=== PATIENT | female | born 1945 | race Caucasian/White ===

== ENCOUNTER 2021-09-17 13:14 | Emergency (ER) | payer OTHER ==
[2021-09-17] MEDS ORDERED: Caclcium Chloride 10% INJ SYR IV ONE (13:15)
[2021-09-17] MEDS ORDERED: EPINEPHrine 1 MG/10 ML SYR IV ONE (13:15)
--- OUTSIDE RECORDS SUMMARY | 2021-09-17 13:17 | XMS REPORT | Continuity of Care Document ---
:1945 Author Organization [facility] t Address [address] [place] [id number] Care Team Providers Name Role Phone MYRTLE Primary Care Physician Unavailable Frantz PETERSON Attending Clinician Unavailable Jaspal MA Attending Clinician Unavailable Missy BURNETTE Attending Clinician Unavailable Jaspal MA Admitting Clinician Unavailable Missy BURNETTE Admitting Clinician Unavailable Payers Payer Name Policy Type Policy Number Effective Date Expiration Date S anne [employer] MEDICARE ADV [id number] 2019 00:00:00 Problems This patient has no known problems. Allergies, Adverse Reactions, Alerts Allergy Allergy Status Severity Reaction(s) Onset Inactive Treating Comm ents Source Name Type Date Date Clinician STATINS- Drug Active Other-Cmnt Univ ers [facility]G-COA Class 3-16 ity of REDUCTAS 00:00: [address] RS FOOD [facility]ergy Active [facility] STATINS- Allergy Active [facility] HMG-COA [facility] [place] INHIBITO RS NO KNOWN Drug Active Univers ALLERGIE Class ity of [facility] Medications This patient has no known medications. Procedures This patient has no known procedures. Encounters Start End Encounter Admission Attending Care Care Encounter Source Date/Time Date/Time Type Type Clinicians Facility Department ID 2020-11-19 2020-11-19 Outpatient Ricci PETERSON [facility] [id number] Univers 13:15:00 13:15:00 BARBARA [id number] [facility] 2020-11-19 2020-11-19 Outpatient Ricci PETERSON [facility] [id number] Univers 13:15:00 13:15:00 BARBARA [facility] 2020-01-23 2020-01-23 Outpatient Ricci PETERSON [facility] [id number] Univers 10:40:07 23:59:00 BARBARA seo [facility] 2019-12-11 2019-12-11 Emergency X [facility] ERT [id number] Univers 16:11:12 19:27:00 MELANY taylor [facility] Results Test Description Test Time Test Comments Results Result Comments Source TISSUE EXAM 2019-06-18 Surgical Pathology 19:33:00 Report Case: [id number] Authorizing Provider: Carroll Burnette MD Collected: 06/16/2019 0945 Ordering Location: [facility] Endoscopy Received: 06/16/2019 1215 Services Pathologist: Medhat Restrepo MD Specimen: Distal Esophagus, bx to rule out Dysplasia A. 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 The specimen is submitted in toto following filtration in cassette A1. SS/plPerformed. POCT-GLUCOSE METER 2019-06-16 08:04:00 Test Item Value Reference Range Interpretation Comme nts POC-GLUCOSE METER (NADINE) (test 96 mg/dL 70-110 TESTED AT [facility] [address] [facility] code = 1538) [facility] 7703 0
[2021-09-17] MEDS ORDERED: RSI MEDICATION KIT IV ONE (13:19)
[2021-09-17] MEDS ORDERED: FENTANYL CITR 100 MCG/2 ML ONE (13:20)
[2021-09-17] MEDS ORDERED: VERAPAMIL HCL 10 MG/4 ML VIAL IV ONE (13:20)
[2021-09-17] MEDS ORDERED: MIDAZOLAM HCL 2 MG/2 ML INJ ONE (13:22)
[2021-09-17] MEDS ORDERED: HEPARIN/D5W 25,000 UNIT/500 ML BAG IV ONE (13:22)
[2021-09-17] MEDS ORDERED: HEPARIN 5000 UNIT/ML 1 ML VIAL ONE (13:22)
[2021-09-17] MEDS ORDERED: TENECTEPLASE 50 MG/10 ML VIAL IV ONE (13:24)
--- NOTE | 2021-09-17 14:13 | EDPHYS ---
Physician Documentation [facility] Name: Tika Muniz Age: 76 yrs Sex: Female : 1945 Arrival Date: 09/17/2021 Time: 13:15 Bed 4 Private MD: ED Physician Tanvir Shelton HPI: 09/17 16:03 This 76 yrs old Female presents to ER via Other with complaints of CPR. jr8 16:03 Preceding the arrest, the patient was dyspneic. The arrest occurred in a parking lot. jr8 Pre-hospital course: The arrest was witnessed by family. Bystanders at the scene did not perform CPR. The patient has not experienced similar symptoms in the past. The patient has not recently seen a physician. A 76-year-old female patient that presented to the emergency room in her family's car. Family member stated that she had called them because she was not feeling well and started to have shortness of breath. Family stated as soon as they had arrived to the front of the emergency room patient stopped talking. She rushed inside to get nursing staff at that point. It was identified that patient was having agonal respirations without a pulse. Immediate CPR was started and patient was taken out of the car via stretcher into the emergency room.. ROS: 16:03 Unable to obtain ROS due to patient distress. jr8 Exam: 16:03 Head/Face: Normocephalic, atraumatic. jr8 16:03 Eyes: Pupils: equal, right pupil is approximately 3 mm(s), left pupil is approximately 3 mm(s). 16:03 Neck: External neck: no acute changes, Trachea: is midline with no obvious abnormalities. 16:03 Cardiovascular: Rate: tachycardic, Rhythm: pea, Pulses: not palpable. 16:03 Respiratory: agonal. 16:03 Abdomen/GI: Inspection: abdomen appears normal, Palpation: soft. 16:03 Skin: Appearance: Color: pale, Temperature: normal temperature. Vital Signs: 13:17 BP 170 / 136; mckeon 13:23 BP 115 / 29; mckeon [place] Coma Score: 13:23 Eye Response: none(1). Verbal Response: none(1). Motor Response: none(1). Modifying mckeon Factors: Intubated. Total: 3. 16:03 Eye Response: none(1). Verbal Response: none(1). Motor Response: none(1). Total: 3. jr8 Procedures: 16:03 Central Line: the site was prepped with Betadine, in sterile fashion, a triple lumen jr8 catheter was inserted, in the right femoral vein, in 1 attempts. placement was verified, by blood return, the site was dressed with 4X4s, Tegaderm, foam tape, using sterile technique. 16:03 Intubation: Intubated orally using # 4 Manjinder blade with 7.5 mm ETT. was successful jr8 on first attempt. Ventilated with Ambu bag. Tube secured with ETT oro at center of mouth measured 21 cm at lip. Placement verified by CO2 detector with (+) color change, auscultating bilateral breath sounds. MDM: 13:39 Patient medically screened. jr8 14:08 Data reviewed: vital signs, nurses notes, EKG. jr8 16:03 ED course: Despite continued ACLS protocol including TNKase and heparin after noting jr8 that patient had a large anterior wall STEMI. We were unable to gain pulse after the initial ROSC. Family was notified at that time.. 09/17 13:22 Order name: glucometer results - FOR PT WITH NO ID [id number] Administered Medications: 13:18 Drug: fentaNYL (PF) 50 mcg Route: IVP; Site: right femoral; mckeon 13:23 Drug: EPINEPHrine 0.1mg/mL 1:10,000 1 mg Route: IVP; Site: right femoral; mckeon 13:25 Drug: Calcium Chloride 10% 10 ml Route: IVP; Site: right femoral; mckeon 13:25 Drug: HEParin 5000 units Route: IV; Rate: bolus; Site: right femoral; mckeon 13:27 Drug: Sodium Bicarbonate 1 amp Route: IVP; Site: right femoral; mckeon 13:29 Drug: EPINEPHrine 0.1mg/mL 1:10,000 1 mg Route: IVP; Site: right femoral; mckeon 14:23 Drug: Tenecteplase 50 mg Route: IV; Rate: bolus; Site: right femoral; mckeon Point of Care Testing: Blood Glucose: 13: Blood Glucose: 230 mg/dL; mckeon Ranges: Critical Glucose Levels:Adult <50 mg/dl or >400 mg/dl <40 mg/dl or >180 mg/dl Disposition: 14:08 . jr8 18:32 Co-signature as Attending Physician, Tanvir Shelton MD I agree with the assessment and kdr plan of care. Disposition Summary: 09/17/21 14:12 Patient Location: Home [facility] Pronouncing Physician: Hipolito Sheriff jrPanda Time of : 13:35 09/17/2021 jr8 Diagnosis - ST elevation (STEMI) myocardial infarction involving left anterior descending jr8 coronary artery - Cardiac arrest due to underlying cardiac condition jr8 Signatures: Dispatcher [employer] EDMS Tanvir Shelton MD MD [facility] Hipolito Sheriff PA PA jr8 Au-StagerShelia
--- NOTE | 2021-09-17 14:13 | ER ---
Nurse's Notes [facility] Name: Tika Muniz Age: 76 yrs Sex: Female : 1945 Arrival Date: 09/17/2021 Time: 13:15 Bed 4 Private MD: Diagnosis: ST elevation (STEMI) myocardial infarction involving left anterior descending coronary artery;Cardiac arrest due to underlying cardiac condition Presentation: 09/17 14:17 Chief complaint: Patient states: cardiac arrest. Care prior to arrival: CPR. mckeon Compressions began at 13:11. 14:17 Method Of Arrival: Other mckeon 14:17 Acuity: ITALO 1 mckeon Triage Assessment: 14:30 General: Appears code blue. Behavior is unresponsive. Pain: Denies pain. Unable to use mckeon pain scale. Patient is unresponsive. Screenin:23 Abuse screen: Denies threats or abuse. Denies injuries from another. Nutritional mckeon screening: No deficits noted. Tuberculosis screening: No symptoms or risk factors identified. Assessment: 13:11 CPR assessment: unresponsive, no respiratory effort, pale. mckeon 13:11 Reassessment: pt was presented cardiac arrest [employer]. pt neighbor drive pt to hospital. mckeon CPR initiated by nurse Ashanti and Hipolito CARDONA in the parking lot ED entrance. 1314 pt was presented with agonal respiration and no pulse-PEA. . 13:17 Cardiac rhythm is pt with palpable pulses, sinus tach on monitor. iw 13:21 CPR assessment: unresponsive, no respiratory effort, Ambu ventilation. Cardiac rhythm iw is PEA. 13:31 CPR assessment: unresponsive, no respiratory effort, Ambu ventilation. Cardiac rhythm iw is PEA. 13:35 CPR assessment: unresponsive, no respiratory effort. Cardiac rhythm is PEA. iw 16:16 Reassessment: 1500 [employer] was contacted for organ donation.circuit court judge sign consent to mckeon release pt to home- 1535. pt family visit pt, spouse decline organ donation. 1610 [facility] home picked up PT. Vital Signs: 13:17 BP 170 / 136; mckeon 13:23 BP 115 / 29; mckeon [place] Coma Score: 13:23 Eye Response: none(1). Verbal Response: none(1). Motor Response: none(1). Modifying mckeon Factors: Intubated. Total: 3. 16:03 Eye Response: none(1). Verbal Response: none(1). Motor Response: none(1). Total: 3. jr8 ED Course: 13:15 Patient arrived in ED. bd 13:23 Patient has correct armband on for positive identification. Intubation: 7.5 Fr. ETT mckeon placed orally. Performed by Tanvir Shelton MD Successful on first attempt. Placement verified by CO2 detector w/ + color change, auscultating bilateral breath sounds, Ventilated with Ambu bag. Inserted saline lock: 20 gauge antecubital area, using aseptic technique. 13:28 Assisted provider with central line placement. Set up central line tray. Triple lumen iw line placed in right femoral. Line placed by Tanvir Shelton MD Placement verified by blood return, Dressed with Tape, Tegaderm. 13:39 Hipolito Sheriff PA is PHCP. jr8 13:39 Tanvir Shelton MD is Attending Physician. jr8 13:41 EKG done, by ED staff, reviewed by Hipolito CARDONA. [facility] 13:47 contacted pd to have circuit court judge come to er. bd 14:11 Hipolito Sheriff PA is Pronouncing Provider. jr8 14:18 Triage completed. mckeon 14:31 Assisted provider with intubation Set up intubation tray. mckeon Administered Medications: 13:18 Drug: fentaNYL (PF) 50 mcg Route: IVP; Site: right femoral; mckeon 13:23 Drug: EPINEPHrine 0.1mg/mL 1:10,000 1 mg Route: IVP; Site: right femoral; mckeon 13:25 Drug: Calcium Chloride 10% 10 ml Route: IVP; Site: right femoral; mckeon 13:25 Drug: HEParin 5000 units Route: IV; Rate: bolus; Site: right femoral; mckeon 13:27 Drug: Sodium Bicarbonate 1 amp Route: IVP; Site: right femoral; mckeon 13:29 Drug: EPINEPHrine 0.1mg/mL 1:10,000 1 mg Route: IVP; Site: right femoral; mckeon 14:23 Drug: Tenecteplase 50 mg Route: IV; Rate: bolus; Site: right femoral; mckeon Point of Care Testing: Blood Glucose: 13:23 Blood Glucose: 230 mg/dL; mckeon Ranges: Outcome: 13:35 Outcome Patient iw 13:35 Condition: iw 14:33 Discharged to 16:19 Patient : Time of 13:35 Pronounced by Tanvir Shelton MD Body to iw home. 16:20 Patient left the ED. mckeon Signatures: Leigh Ann Jean Irene, RN RN Hipolito Sheriff PA PA 8 Babs Leigh 5 Au-Stager, Shelia mckeon Corrections: (The following items were deleted from the chart) 14:20 13:23 EPINEPHrine 0.1mg/mL 1:10,000 1 mg IVP in left femoral mckeon mckeon 14:32 13:23 BP 113 / 298; mckeon mckeon 15:00 14:17 CPR assessment: unresponsive, no respiratory effort, pale, mckeon mckeon 16:51 14:17 Cardiac rhythm is PEA mckeon iw 16:51 14:52 Reassessment: mckeon iw 16:53 14:30 Patient cpr mckeon iw 16:53 13:35 Condition: iw
[2021-09-17 16:26] VITALS: BP 115/29
== END 2021-09-17 16:20 | disposition expired ==
LOC: ER 13:14
PROC: 06HM33Z Insertion of Infusion Device into Right Femoral Vein, Percutaneous Approach (ICD-10-PCS; principal; 2021-09-17)
PROC: 0BH17EZ Insertion of Endotracheal Airway into Trachea, Via Natural or Artificial Opening (ICD-10-PCS; 2021-09-17)
PROC: 5A1935Z Respiratory Ventilation, Less than 24 Consecutive Hours (ICD-10-PCS; 2021-09-17)
DX: I21.02 ST elevation (STEMI) myocardial infarction involving left anterior descending coronary artery (principal)
CPT/HCPCS: 92977; 93005; 36415; 82947; 31500; 96375; 96374; 92950; 99285; 36556; 94002; J1644 ×2; J3101; J3010; J0171; J2250